=== PATIENT | female | born 1990 | race Caucasian/White ===

== ENCOUNTER 2022-01-03 21:06 | Emergency (ER) | payer SELFPAY ==
[2022-01-03] MEDS ORDERED: Ibuprofen 800 MG TAB ONE (22:54)
== END 2022-01-04 00:18 | disposition home or self-care (01) ==
LOC: MADERS 21:06
DX: S93.401A Sprain of unspecified ligament of right ankle, initial encounter (principal); W10.9XXA Fall (on) (from) unspecified stairs and steps, initial encounter
CPT/HCPCS: 29515